=== PATIENT | male | born 1980 | race Two or more races ===

== ENCOUNTER 2023-05-05 10:06 | Emergency (ER) | payer OTHER ==
[~2023-05-05] VITALS: Ht 177.8 cm; Wt 78.0 kg
[2023-05-05 11:34] VITALS: BP 124/98
== END 2023-05-05 11:34 | disposition home or self-care (01) ==
LOC: ED 10:06
DX: S01.00XA Unspecified open wound of scalp, initial encounter (principal); S20.212A Contusion of left front wall of thorax, initial encounter; Y04.0XXA Assault by unarmed brawl or fight, initial encounter; Z88.0 Allergy status to penicillin
CPT/HCPCS: 70450; 71046; 99284-25; A9270